=== PATIENT | male | born 2000 | race Caucasian/White ===

== ENCOUNTER 2018-07-19 18:30 | Emergency (ER) | payer OTHER ==
[2018-07-19] MEDS ORDERED: DULO60CA7 PO (18:35)
--- NOTE | 2018-07-19 18:38 | ER Report ---
History and Physical Time Seen By MD: 18:38 Hx. of Stated Complaint: SHARP CHEST PAIN FOR 20 MINUTES HPI/ROS CHIEF COMPLAINT: chest pain HISTORY OF PRESENT ILLNESS: This is a 18 year old male. He has been having chest pain tonight. Had some dull pressure starting Friday night. Tonight was sharp for the last 20 minutes. Nothing makes it worse or better. No pain with deep breaths. He has no nausea or vomiting. He denies recent illness such as sore throat, cough or fevers. Has normal bowel and bladder. He smokes about 1-2 cigarettes a week. He uses marijuana. He denies other drug use. He did drink Friday night, and pain started about this same time. He has no history of pancreatitis, liver or gallbladder disease. No history of reflux problems. Allergies: Coded Allergies: No Known Drug Allergies (Unverified , 07/19/18) Home Meds Reported Medications Duloxetine HCl (Duloxetine HCl) 60 Mg Capsule.dr, 90 MG PO QDAY 07/19/18 Reviewed Nurses Notes: Yes Hx Substance Use Disorder: Yes (MARIJUANA ) Constitutional Vital Sign - Last 24 Hours 07/19/18 07/19/18 07/19/18 07/19/18 18:33 19:00 19:15 19:30 Temp 99.8 Pulse 144 105 91 Resp 20 16 15 B/P (MAP) 143/95 ???/??? (1665) 128/82 (97) 125/66 (85) Pulse Ox 96 91 93 O2 Delivery Room Air 07/19/18 07/19/18 07/19/18 20:00 20:15 20:30 Pulse 99 107 Resp 19 19 B/P (MAP) 125/80 (95) 120/79 (93) 124/83 (97) Pulse Ox 92 93 Physical Exam General Appearance: The patient is alert. No acute distress. Eyes: Pupils are equal, round. No pallor, injection or icterus. ENT: Mucous membranes are moist. Normal oral mucosa. Posterior oropharynx is normal. Neck: Supple and non tender. No lymphadenopathy. Respiratory: Lungs are clear to auscultation. Cardiovascular: Regular rate and rhythm. No murmurs, gallops or rubs. Normal capillary refill. No edema. Gastrointestinal: Abdomen is soft and non tender. Nondistended. No rebound or guarding. No masses or organomegaly. Normal active bowel sounds. No costovertebral angle tenderness with percussion. Neurological: Alert and oriented x3. No focal neurologic deficits Skin: Warm and dry. Musculoskeletal: No reproducible pain with palpating the chest. No pain in the back or spine area. DIFFERENTIAL DIAGNOSIS: After history and physical exam, differential diagnosis was considered for chest pain including but not limited to myocardial ischemia, pericarditis pulmonary embolus, chest wall pain, pleural inflammation and pulmonary infectious causes. Medical Decision Making Data Points Result Diagram: 07/19/18183807/19/189 Laboratory Hematology Test 07/19/18 18:39 Red Blood Count 6.16 M/uL (4.00-5.60) Mean Corpuscular Volume 82.9 fL (80.0-96.0) Mean Corpuscular Hemoglobin 28.3 pg (26.0-33.0) Mean Corpuscular Hemoglobin Concent 34.1 g/dL (32.0-36.0) Red Cell Distribution Width 14.3 % (11.5-14.5) Mean Platelet Volume 7.0 fL (7.2-11.1) Neutrophils (%) (Auto) 62.5 % (39.4-72.5) Lymphocytes (%) (Auto) 26.6 % (17.6-49.6) Monocytes (%) (Auto) 7.8 % (4.1-12.4) Eosinophils (%) (Auto) 2.3 % (0.4-6.7) Basophils (%) (Auto) 0.8 % (0.3-1.4) Nucleated RBC Relative Count (auto) 0.1 /100WBC Neutrophils # (Auto) 5.1 K/uL (2.0-7.4) Lymphocytes # (Auto) 2.2 K/uL (1.3-3.6) Monocytes # (Auto) 0.6 K/uL (0.3-1.0) Eosinophils # (Auto) 0.2 K/uL (0.0-0.5) Basophils # (Auto) 0.1 K/uL (0.0-0.1) Nucleated RBC Absolute Count (auto) 0.01 K/uL D-Dimer Quantitative (PE/DVT) < 0.27 ug/ml (0-0.50) Sodium Level 140 mmol/L (137-145) Potassium Level 3.4 mmol/L (3.5-5.0) Chloride Level 102 mmol/L (98-107) Carbon Dioxide Level 26 mmol/L (22-30) Blood Urea Nitrogen 13 mg/dl (9-21) Creatinine 0.90 mg/dl (0.66-1.25) Glomerular Filtration Rate Calc > 60.0 Random Glucose 117 mg/dl (75-110) Calcium Level 10.0 mg/dl (8.4-10.2) Total Bilirubin 0.9 mg/dl (0.2-1.3) Aspartate Amino Transf (AST/SGOT) 26 U/L (0-35) Alanine Aminotransferase (ALT/SGPT) 25 U/L (0-56) Alkaline Phosphatase 76 U/L (0-126) Troponin I < 0.012 ng/ml Total Protein 8.1 g/dl (6.3-8.2) Albumin 4.7 g/dl (3.5-5.0) Amylase Level 53 U/L (0-110) Lipase 318 U/L (23-300) Chemistry Test 07/19/18 18:39 White Blood Count 8.1 k/uL (4.5-11.0) Red Blood Count 6.16 M/uL (4.00-5.60) Hemoglobin 17.4 g/dL (14.0-18.0) Hematocrit 51.1 % (42.0-52.0) Mean Corpuscular Volume 82.9 fL (80.0-96.0) Mean Corpuscular Hemoglobin 28.3 pg (26.0-33.0) Mean Corpuscular Hemoglobin Concent 34.1 g/dL (32.0-36.0) Red Cell Distribution Width 14.3 % (11.5-14.5) Platelet Count 340 K/uL (150-450) Mean Platelet Volume 7.0 fL (7.2-11.1) Neutrophils (%) (Auto) 62.5 % (39.4-72.5) Lymphocytes (%) (Auto) 26.6 % (17.6-49.6) Monocytes (%) (Auto) 7.8 % (4.1-12.4) Eosinophils (%) (Auto) 2.3 % (0.4-6.7) Basophils (%) (Auto) 0.8 % (0.3-1.4) Nucleated RBC Relative Count (auto) 0.1 /100WBC Neutrophils # (Auto) 5.1 K/uL (2.0-7.4) Lymphocytes # (Auto) 2.2 K/uL (1.3-3.6) Monocytes # (Auto) 0.6 K/uL (0.3-1.0) Eosinophils # (Auto) 0.2 K/uL (0.0-0.5) Basophils # (Auto) 0.1 K/uL (0.0-0.1) Nucleated RBC Absolute Count (auto) 0.01 K/uL D-Dimer Quantitative (PE/DVT) < 0.27 ug/ml (0-0.50) Glomerular Filtration Rate Calc > 60.0 Calcium Level 10.0 mg/dl (8.4-10.2) Total Bilirubin 0.9 mg/dl (0.2-1.3) Aspartate Amino Transf (AST/SGOT) 26 U/L (0-35) Alanine Aminotransferase (ALT/SGPT) 25 U/L (0-56) Alkaline Phosphatase 76 U/L (0-126) Troponin I < 0.012 ng/ml Total Protein 8.1 g/dl (6.3-8.2) Albumin 4.7 g/dl (3.5-5.0) Amylase Level 53 U/L (0-110) Lipase 318 U/L (23-300) Coagulation Test 07/19/18 18:39 D-Dimer Quantitative (PE/DVT) < 0.27 ug/ml EKG/Imaging EKG Interpretation 12 lead EKG: Rhythm: Sinus tachycardia, rate 125 [place]: Rightward axis QRS: normal ST segments: normal Imaging 2 VIEWS CHEST INDICATION: Chest pain. COMPARISON: None available FINDINGS: Cardiomediastinal silhouette and pulmonary vessels within normal limits. There is no focal infiltrate or lobar consolidation. There is no pneumothorax or pleural effusion. No nodule. Upper abdomen is unremarkable. No acute bony abnormality. IMPRESSION: 1. No acute cardiopulmonary process. Report Dictated By: Panfilo Allison at 07/19/2018 8:04 PM ED Course/Re-evaluation Clinical Indication for ER IV: Hydration, IV Access ED Course Vital signs improved during his stay and was normal on discharge. EKG and imaging negative. Labs unremarkable. Other than that we'll lipase being slightly elevated. I suspect he may have a mild case of pancreatitis since the pain came on when he was drinking on Friday. We talked about typical treatment for pancreatitis and also trying some Zantac or Pepcid Decision to Disposition Date: Jul 19, 2018 Decision to Disposition Time: 20:25 Depart Departure Latest Vital Signs Vital Signs Date Time Temp Pulse Resp B/P (MAP) Pulse Ox O2 Delivery O2 Flow Rate FiO2 07/19/18 20:30 107 19 124/83 (97) 93 07/19/18 18:33 99.8 Room Air Impression: Primary Impression: Pancreatitis Condition: Improved Disposition: HOME OR SELF-CARE Patient Instructions: Pancreatitis (ED) Additional Instructions: [place] diet and extra fluid intake over the next 24-48 hours. We suspect that this may have been caused by the alcohol intake on Friday night. Watch for any patterns and if this happens with alcohol intake, you may need to cut back or decrease alcohol intake altogether. Try adding in some Zantac 150mg or Pepcid 40mg twice a day as needed. Problem Qualifiers Primary Impression: Pancreatitis Chronicity: acute Pancreatitis type: alcohol induced Acute pancreatitis complication: no infection or necrosis Qualified Codes: K85.20 - Alcohol induced acute pancreatitis without necrosis or infection YUSEF REYES MD Jul 19, 2018 18:38
[2018-07-19] MEDS ORDERED: NS(*) 0.9% 1000 ML BAG 1,000 ML IV ONE (18:53)
[2018-07-19] MEDS ORDERED: ASPIRIN 81 MG CHEW PO ONE (18:55)
[2018-07-19 19:05] LABS: PLATELET COUNT, AUTOMATED 340 K/uL (150-450)
--- NOTE | 2018-07-19 20:07 | EKG ---
FACILITY: [facility] [place] PATIENT NAME: CAREN ALLEN : [id number] MR: [id number] V: [id number] EXAM DATE: ORDERING PHYSICIAN: YUSEF REYES TECHNOLOGIST: NIDA Murray Reason : CP Blood Pressure : / mmHG Vent. Rate : 125 BPM Atrial Rate : 125 BPM P-R Int : 156 ms QRS Dur : 082 ms QT Int : 302 ms P-R-T Axes : 066 090 021 degrees QTc Int : 435 ms Sinus tachycardia Rightward axis Borderline ECG No previous ECGs available Confirmed by Jesu Bacon ([id number] on 07/20/2018 7:15:48 AM Referred By: Confirmed By:Jesu Camara
--- NOTE | 2018-07-19 20:09 | RADIOLOGY IMAGING REPORT ---
FACILITY: [facility] PATIENT NAME: Ruben Langley : 2000 MR: [id number] V: [id number] EXAM DATE: ORDERING PHYSICIAN: YUSEF REYES TECHNOLOGIST: Location: [facility] Patient: Ruben Langley : 2000 Visit/Account:[id number] Date of Sevice: 07/19/2018 2 VIEWS CHEST INDICATION: Chest pain. COMPARISON: None available FINDINGS: Cardiomediastinal silhouette and pulmonary vessels within normal limits. There is no focal infiltrate or lobar consolidation. There is no pneumothorax or pleural effusion. No nodule. Upper abdomen is unremarkable. No acute bony abnormality. IMPRESSION: 1. No acute cardiopulmonary process. Report Dictated By: Panfilo Allison at 07/19/2018 8:04 PM Report E-Signed By: Panfilo Allison at 07/19/2018 8:06 PM [id number]
[2018-07-19 20:30] VITALS: BP 124/83
== END 2018-07-19 20:42 | disposition home or self-care (01) ==
LOC: ER 18:39
DX: K85.20 Alcohol induced acute pancreatitis without necrosis or infection (principal); F17.210 Nicotine dependence, cigarettes, uncomplicated
CPT/HCPCS: 71046; 82150; 83690; 84484; 85025; 85379; 93005; 96360; 96361; 99284; J7030; 82040; 82247; 82310; 82374; 82435; 82565; 82947; 84075; 84132; 84155; 84295; 84450; 84460; 84520